=== PATIENT | male | born 1990 | race American Indian/Alaskan Native ===

== ENCOUNTER 2018-06-16 17:48 | Emergency (ER) | payer SELFPAY ==
[2018-06-16] MEDS ORDERED: MOTRIN ONE (19:54)
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
[2018-06-16] MEDS ORDERED: MOTRIN PO ONE (20:07)
[2018-06-16] MEDS ORDERED: NORCO 5/325 PO ONE (20:08)
--- NOTE | 2018-06-16 21:14 | XRay Report ---
FINAL REPORT EXAM: XR ELBOW 2V RT HISTORY: right elbow pain TECHNIQUE: Frontal and lateral views right elbow Comparison: None FINDINGS: There is no evidence of fracture or subluxation. The joint spaces appear to be maintained. The soft tissues are unremarkable. IMPRESSION: 1. No plain film evidence of bony or soft tissue abnormality.
--- NOTE | 2018-06-16 21:23 | XRay Report ---
FINAL REPORT EXAM: XR WRIST 2V RT HISTORY: right snuff box tenderness TECHNIQUE: Frontal and lateral views right wrist Comparison: None FINDINGS: There is no evidence of fracture or subluxation. The joint spaces are maintained. The soft tissues are unremarkable. IMPRESSION: 1. No evidence of fracture or subluxation. If the patient remains symptomatic, MRI may be helpful.
[2018-06-16 22:45] VITALS: BP 140/80
== END 2018-06-16 22:45 | disposition home or self-care (01) ==
LOC: ED 17:48
DX: S63.501A Unspecified sprain of right wrist, initial encounter (principal); M25.521 Pain in right elbow; F17.200 Nicotine dependence, unspecified, uncomplicated; F12.10 Cannabis abuse, uncomplicated; W17.89XA Other fall from one level to another, initial encounter; Y93.89 Activity, other specified; Y92.89 Other specified places as the place of occurrence of the external cause; Y99.8 Other external cause status